=== PATIENT | female | born 1980 ===

== ENCOUNTER 2020-11-01 21:46 | Emergency (ER) | payer SELFPAY ==
[2020-11-02 00:31] LABS: Urine Bacteria 20-50 /HPF (<20); Urine Urothelial Cells <5 /HPF (NONE SEEN)
[2020-11-02 00:52] LABS: Absolute Lymphocytes (CBC) 1.8 K/uL (0.7-4.9); Basophils % 0.4 % (0-1.3); Lymphocytes % 10.9 % (15.3-44.8); MPV 7.7 fL (7.6-11.3); RBC Red Blood Cell Count 4.17 M/uL (3.86-4.86)
[2020-11-02 01:02] LABS: ALT/SGPT 30 U/L (12-78); AST/SGOT 24 U/L (15-37); Albumin 3.8 g/dL (3.4-5.0); Alkaline Phosphatase 90 U/L (45-117); BUN Blood Urea Nitrogen 13 mg/dL (7-18); Bicarbonate 26 mmol/L (21-32); Bilirubin Direct 0.1 mg/dL (0-0.2); Bilirubin Total 0.4 mg/dL (0.2-1.0); Glucose Level 102 mg/dL (74-106); Lipase 93 U/L (73-393); Potassium 3.7 mmol/L (3.5-5.1); Protein, Total 8.2 g/dL (6.4-8.2); Sodium Level 137 mmol/L (136-145)
[2020-11-02] MEDS ORDERED: CEFTRIAXONE/SWI 1gm 1 GM/10 ML SYR ONE (01:40)
[2020-11-02] MEDS ORDERED: NA CHLORIDE 0.9% 1,000 ML ONE (01:40)
[2020-11-02] MEDS ORDERED: KETOROLAC 30 MG/ML INJ ONE (01:40)
--- NOTE | 2020-11-02 02:01 | EDPHYS ---
Physician Documentation [facility] Name: Randa Mayberry Age: 40 yrs Sex: Female : 1980 Arrival Date: 11/01/2020 Time: 21:49 Bed DIS2 Private MD: ED Physician Fan Wray HPI: 11/02 00:10 This 40 yrs old Unknown Female presents to ER via Ambulatory with complaints of mh7 Abdominal Pain, SIDE PAIN. 00:10 The patient presents with abdominal pain right lower quadrant. Onset: The mh7 symptoms/episode began/occurred yesterday. The symptoms radiate to the right flank. Associated signs and symptoms: Pertinent positives: nausea and vomiting, dysuria, Pertinent negatives: anorexia, blood in stools, chest pain, constipation, diarrhea, fever, headache, hematuria, palpitations, shortness of breath, vaginal discharge, vomiting blood. The symptoms are described as intermittent, vague, waxing/waning. Modifying factors: The symptoms are alleviated by nothing, the symptoms are aggravated by nothing. Severity of pain: At its worst the pain was moderate yesterday, in the emergency department the pain has improved moderately. 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 Date received September 2020. - Social history:: Smoking status: Patient denies any tobacco usage or history of. ROS: 11/02 00:10 Constitutional: Negative for fever, chills, and weight loss, Eyes: Negative for injury, mh7 pain, redness, and discharge, ENT: Negative for injury, pain, and discharge, Neck: Negative for injury, pain, and swelling, Cardiovascular: Negative for chest pain, palpitations, and edema, Respiratory: Negative for shortness of breath, cough, wheezing, and pleuritic chest pain, MS/Extremity: Negative for injury and deformity, Skin: Negative for injury, rash, and discoloration, Neuro: Negative for headache, weakness, numbness, tingling, and seizure, Psych: Negative for depression, anxiety, suicide ideation, homicidal ideation, and hallucinations, Allergy/Immunology: Negative for hives, rash, and allergies, Endocrine: Negative for neck swelling, polydipsia, polyuria, polyphagia, and marked weight changes, Hematologic/Lymphatic: Negative for swollen nodes, abnormal bleeding, and unusual bruising. Exam: 00:10 Constitutional: This is a well developed, well nourished patient who is awake, alert, mh7 and in no acute distress. Head/Face: Normocephalic, atraumatic. Eyes: Pupils equal round and reactive to light, extra-ocular motions intact. Lids and lashes normal. Conjunctiva and sclera are non-icteric and not injected. Cornea within normal limits. Periorbital areas with no swelling, redness, or edema. Neck: Trachea midline, no thyromegaly or masses palpated, and no cervical lymphadenopathy. Supple, full range of motion without nuchal rigidity, or vertebral point tenderness. No Meningismus. Chest/axilla: Normal chest wall appearance and motion. Nontender with no deformity. No lesions are appreciated. Cardiovascular: Regular rate and rhythm with a normal S1 and S2. No gallops, murmurs, or rubs. Normal PMI, no JVD. No pulse deficits. Respiratory: Lungs have equal breath sounds bilaterally, clear to auscultation and percussion. No rales, rhonchi or wheezes noted. No increased work of breathing, no retractions or nasal flaring. 00:10 Skin: Warm, dry with normal turgor. Normal color with no rashes, no lesions, and no evidence of cellulitis. MS/ Extremity: Pulses equal, no cyanosis. Neurovascular intact. Full, normal range of motion. Neuro: Awake and alert, GCS 15, oriented to person, place, time, and situation. Cranial nerves II-XII grossly intact. Motor strength 5/5 in all extremities. Sensory grossly intact. Cerebellar exam normal. Normal gait. Psych: Awake, alert, with orientation to person, place and time. Behavior, mood, and affect are within normal limits. 00:10 Abdomen/GI: Inspection: abdomen appears normal, Bowel sounds: normal, in all quadrants, Palpation: mild abdominal tenderness, in the suprapubic area and right lower quadrant, mass, is not appreciated, rebound tenderness, is not appreciated, voluntary guarding, is not appreciated, involuntary guarding, is not appreciated, no appreciated organomegaly, Rectal exam: the exam is deferred, because of patient request, Indicators: McBurney's point is not tender, Delgado's sign is negative, Rovsing's sign is negative, Obturator sign is negative, Psoas sign is negative, Liver: no appreciated palpable abnormalities, Hernia: not appreciated. 00:10 Back: normal spinal alignment noted, CVA tenderness, that is mild, is noted on the right. Vital Signs: 11/01 22:36 BP 142 / 99; Pulse 103; Resp 20; Temp 99.1; Pulse Ox 99% ; Weight 61.69 kg (R); Height kg 5 ft. 1 in. (154.94 cm) (R); Pain 10/10; 11/02 02:35 BP 127 / 80; Pulse 100; Resp 16 S; Pulse Ox 98% on R/A; Pain 0/10; bb 11/01 22:36 Body Mass Index 25.70 (61.69 kg, 154.94 cm) kg MDM: 01:59 Differential diagnosis: appendicitis, bowel obstruction, diverticulitis, Ectopic mh7 , non-specific abd pain, Pyelonephritis, Ureterolithiasis, urinary tract infection. Data reviewed: vital signs, nurses notes, lab test result(s), CBC, electrolytes, urinalysis, UPT: negative radiologic studies, CT scan. Data interpreted: Pulse oximetry: on room air is 99 %. Interpretation: normal. Counseling: I had a detailed discussion with the patient and/or guardian regarding: the historical points, exam findings, and any diagnostic results supporting the discharge/admit diagnosis, the presence of at least one elevated blood pressure reading (>120/80) during this emergency department visit, lab results, radiology results, the need for outpatient follow up, an senior database programmer, a urologist. Response to treatment: the patient's symptoms have resolved after treatment, the patient's blood pressure is in an acceptable range, mental status has returned to baseline, the patient no longer shows bradycardia, the patient is not short of breath, the patient is not tachycardic, the patient's pain is gone, the patient's temperature has normalized, the patient is now symptom free, patient is well hydrated. 02:01 Patient medically screened. [facility] 11/01 23:16 Order name: Urine Microscopic Only; Complete Time: 00:34 mw2 11/01 23:16 Order name: Urine Culture kg 11/02 00:15 Order name: Basic Metabolic Panel; Complete Time: 01:15 kg 11/02 00:15 Order name: CBC with Diff; Complete Time: 01:15 kg 11/02 00:15 Order name: Hepatic Function; Complete Time: 01:15 kg 11/01 23:16 Order name: Urine Dipstick-Ancillary (obtain specimen); Complete Time: 23:16 mw2 11/01 23:16 Order name: Urine Test (obtain specimen); Complete Time: 23:16 mw2 11/02 00:15 Order name: Lipase; Complete Time: :15 kg 11/02 00:15 Order name: IV Saline Lock; Complete Time: 00:16 kg 11/02 00:30 Order name: CT Stone Protocol [facility] 11/02 00:15 Order name: Labs collected and sent; Complete Time: 00:16 kg Administered Medications: 01:24 Drug: NS 0.9% 1000 ml Route: IV; Rate: 1000 ml; Site: right antecubital; bb 02:36 Follow up: IV Status: Completed infusion; IV Intake: 1000ml bb 01:24 Drug: Ketorolac 30 mg Route: IVP; Site: right antecubital; bb 02:37 Follow up: Response: No adverse reaction; Pain is decreased bb 01:24 Drug: Rocephin (cefTRIAXone) 1 grams Route: IV; Rate: per protocol; Site: right bb antecubital; 01:29 Follow up: IV Status: Completed infusion; IV Intake: 10ml bb Disposition Summary: 11/02/20 02:01 Discharge Ordered Location: Home [facility] Problem: new [facility] Symptoms: have improved [facility] Condition: Stable [facility] Diagnosis - Pyelonephritis acute [facility] Followup: [facility] - With: Private Physician - When: 1 - 2 days - Reason: Worsening of condition, Recheck today's complaints, Continuance of care, Re-evaluation by your physician Followup: [facility] - With: Hamilton Bentley MD - When: 1 - 2 days - Reason: Worsening of condition, Recheck today's complaints Discharge Instructions: - Discharge Summary Sheet [facility] - Pyelonephritis, Adult, [id number] [facility] Forms: - Medication Reconciliation Form [facility] - Thank You Letter [facility] - Antibiotic Education [facility] - Prescription Opioid Use [facility] Prescriptions: - ketorolac 10 mg Oral tablet - take 1 tablet by ORAL route every 6 hours As needed not to exceed 40 mg in mh7 24hrs; 12 tablet; Refills: 0, Product Selection Permitted - ondansetron 4 mg Oral tablet,disintegrating - place 1 tablet by TRANSLINGUAL route every 8 hours As needed; 6 tablet; mh7 Refills: 0, Product Selection Permitted - Cipro 500 mg Oral Tablet - take 1 tablet by ORAL route every 12 hours for 10 days; 20 tablet; Refills: 0, 7 Product Selection Permitted Signatures: Dispatcher [employer] Tessie Carpio, RN RN William Monroe 2 Fan Wray MD MD [facility] Manju Solares RN RN kg Corrections: (The following items were deleted from the chart) 11/01 23:17 23:17 [facility].CHAIMZ ordered. EDTN ED
--- NOTE | 2020-11-02 02:01 | ER ---
Nurse's Notes [facility] Name: Randa Mayberry Age: 40 yrs Sex: Female : 1980 Arrival Date: 11/01/2020 Time: 21:49 Bed DIS2 Private MD: Diagnosis: Pyelonephritis acute Presentation: 11/01 22:36 Chief complaint: Patient states: Right lower quadrant abdominal pain radiating to back kg starting this morning. burning with urination starting Saturday. Coronavirus screen: Client denies travel out of the [place] in the last 14 days. At this time, unable to obtain information related to travel outside the [place] At this time, the client does not indicate any symptoms associated with coronavirus-19. Ebola Screen: Patient negative for fever greater than or equal to 101.5 degrees Fahrenheit, and additional compatible Ebola Virus Disease symptoms Patient denies exposure to infectious person. Patient denies travel to an Ebola-affected area in the 21 days before illness onset. Initial Sepsis Screen: Does the patient meet any 2 criteria? No. Patient's initial sepsis screen is negative. Does the patient have a suspected source of infection? No. Patient's initial sepsis screen is negative. Risk Assessment: Do you want to hurt yourself or someone else? Patient reports no desire to harm self or others. Onset of symptoms was October 29, 2020. 22:36 Method Of Arrival: Ambulatory kg 22:36 Acuity: RICHARD 3 kg Triage Assessment: 22:39 General: Appears uncomfortable, Behavior is calm, cooperative, appropriate for age, kg quiet. Pain: Complains of pain in right lower quadrant Pain radiates to right low back Pain currently is 10 out of 10 on a pain scale. at worst was 10 out of 10 on a pain scale. level that patient reports is acceptable is 5 out of 10 on a pain scale. GI: Reports nausea, vomiting. : Reports burning with urination, since 10/29/2020 pain in right in suprapubic area flank(s), lower quadrant(s) in lower back with urination, Pain is 10 out of 10 on a pain scale. 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 Date received September 2020. - Social history:: Smoking status: Patient denies any tobacco usage or history of. Screenin/25 00:15 Abuse screen: Denies threats or abuse. Denies injuries from another. Nutritional kg screening: No deficits noted. Tuberculosis screening: No symptoms or risk factors identified. Fall Risk None identified. Assessment: 01:24 General: Appears in no apparent distress. uncomfortable, Behavior is calm, cooperative. bb Pain: Complains of pain in abdomen. Neuro: Level of Consciousness is awake, alert, obeys commands, Oriented to person, place, time, situation. Cardiovascular: Capillary refill < 3 seconds Patient's skin is warm and dry. Respiratory: Respiratory effort is even, unlabored, Respiratory pattern is regular. GI: Bowel sounds present X 4 quads. Abd is soft X 4 quads Reports lower abdominal pain. Derm: Skin is pink, warm \T\ dry. Musculoskeletal: Circulation, motion, and sensation intact. 02:35 Reassessment: Patient is alert, oriented x 3, equal unlabored respirations, skin bb warm/dry/pink. pt verbalized understanding of and agrees to plan of care discharge instructions given pt ambulated with steady gait to exit Patient states feeling better. Patient states symptoms have improved. Vital Signs: 11/01 22:36 BP 142 / 99; Pulse 103; Resp 20; Temp 99.1; Pulse Ox 99% ; Weight 61.69 kg (R); Height kg 5 ft. 1 in. (154.94 cm) (R); Pain 10/10; 11/02 02:35 BP 127 / 80; Pulse 100; Resp 16 S; Pulse Ox 98% on R/A; Pain 0/10; bb 11/01 22:36 Body Mass Index 25.70 (61.69 kg, 154.94 cm) kg ED Course: 11/01 21:49 Patient arrived in ED. cf2 22:39 Triage completed. kg 22:39 Arm band placed on right wrist. kg 11/02 00:15 Fan Wray MD is Attending Physician. mh7 00:15 Patient has correct armband on for positive identification. kg 00:15 Inserted saline lock: 20 gauge in right antecubital area, using aseptic technique. kg 00:16 Basic Metabolic Panel Sent. kg 00:49 CT Stone Protocol In Process Unspecified. EDMS 01:25 No provider procedures requiring assistance completed. bb 01:27 Tessie Mccoy, RN is Primary Nurse. bb 02:01 Hamilton Bentley MD is Referral Physician. mh7 02:35 IV discontinued, intact, bleeding controlled, No redness/swelling at site. Pressure bb dressing applied. Administered Medications: 01:24 Drug: NS 0.9% 1000 ml Route: IV; Rate: 1000 ml; Site: right antecubital; bb 02:36 Follow up: IV Status: Completed infusion; IV Intake: 1000ml bb 01:24 Drug: Ketorolac 30 mg Route: IVP; Site: right antecubital; bb 02:37 Follow up: Response: No adverse reaction; Pain is decreased bb 01:24 Drug: Rocephin (cefTRIAXone) 1 grams Route: IV; Rate: per protocol; Site: right bb antecubital; 01:29 Follow up: IV Status: Completed infusion; IV Intake: 10ml bb Intake: 01:29 IV: 10ml; Total: 10ml. bb 02:36 IV: 1000ml; Total: 1010ml. bb Outcome: 02:01 Discharge ordered by . 7 02:36 Discharged to home ambulatory. bb 02:36 Condition: stable 02:36 Discharge instructions given to patient, Instructed on discharge instructions, follow up and referral plans. medication usage, Demonstrated understanding of instructions, follow-up care, medications, Prescriptions given X 3. 02:37 Patient left the ED. bb Addendum: 11/05/2020 07:28 Addendum: Culture Results: Positive urine culture. No further action required. Bacteria e b sensitive to prescribed antibiotic. Signatures: Dispatcher [employer] EDMS Tessie Mccoy, RN RN bb Medina Luis Celesta 2 Fan Wray MD MD 7 Manju Solares RN RN kg
[2020-11-02 02:50] VITALS: TEMP 99.1
[2020-11-02 02:55] VITALS: BP 127/80; O2SAT 98
--- NOTE | 2020-11-02 11:03 | RAD REPORT ---
EXAM DESCRIPTION: CT - Stone Protocol - 11/02/2020 6:27 am CLINICAL HISTORY: The patient is 40 years old and is Female; Abd pain;Flank pain TECHNIQUE: Axial computed tomography images of the abdomen and pelvis without intravenous contrast. Sagittal and coronal reformatted images were created and reviewed. This CT exam was performed usi ng one or more of the following dose reduction techniques: automated exposure control, adjustment o f the mA and/or kV according to patient size, and/or use of iterative reconstruction technique. COMPARISON: No relevant prior studies available. FINDINGS: LUNG BASES: Unremarkable. No mass. No consolidation. ABDOMEN: LIVER: Homogeneous without focal mass. GALLBLADDER AND BILE DUCTS: No calcified stones. No ductal dilation. PANCREAS: Unremarkable. No ductal dilation. SPLEEN: Unremarkable. ADRENALS: Unremarkable. No mass. KIDNEYS AND URETERS: Mild right hydroureteronephrosis is present. An obstructing calculus is not seen. Right perinephric and periureteral stranding is present. The left kidney is normal. STOMACH AND BOWEL: The stomach is minimally distended. The small bowel is normal in caliber. Sto ol is present throughout colon. There is no mucosal thickening or evidence of bowel obstruction. PELVIS: APPENDIX: The appendix is normal in caliber without surrounding inflammation. BLADDER: The bladder is well distended. No stones. REPRODUCTIVE: Unremarkable as visualized. ABDOMEN and PELVIS: INTRAPERITONEAL SPACE: Unremarkable. No free air. No significant fluid collection. BONES/JOINTS: No acute fracture. SOFT TISSUES: A small fat-containing umbilical hernia is present. VASCULATURE: Multiple calcified phleboliths are present within the pelvis. No abdominal aortic aneurysm. LYMPH NODES: Unremarkable. No enlarged lymph nodes. IMPRESSION: Mild right hydroureteronephrosis with associated perinephric and periureteral stranding. An obstructing calculus is not seen. Findings suggest a recently passed stone. Electronically signed by: Yazmin Ring MD 11/02/2020 1:01 AM CDT Due to temporary technical issues with the PACS/Fluency reporting system, reports are being signed by the in house radiologist without review as a courtesy to ensure prompt reporting. The interpreting r adiologist is fully responsible for the content of the report.
== END 2020-11-02 02:37 | disposition home or self-care (01) ==
LOC: ER 21:46
DX: N10 Acute pyelonephritis (principal); Z88.5 Allergy status to narcotic agent
CPT/HCPCS: 36415; 74176; 76377; 80048; 80076; 81015; 83690; 85025; 87077; 87086; 87088; 87186; 96361; 96374; 96375; 99284; J0696; J7030